=== PATIENT | male | born 1935 | race Caucasian/White ===

== ENCOUNTER 2020-06-30 07:09 | Inpatient (IN) | payer OTHER ==
[2020-06-30] VITALS (7 sets, daily range): BP systolic 101–135; BP diastolic 43–64
[~2020-06-30] VITALS: Ht 172.7 cm; Wt 79.4 kg
[2020-06-30 07:46] LABS: BASO % 0.2 % (0.0-1.0); EOS % 0.9 % (1.0-4.0); HEMATOCRIT 33.7 % (42.0-52.0); LYMPH # 0.5 10*3/uL (1.3-4.4); LYMPH % 10.5 % (27.0-41.0); MEAN CELL VOLUME 91.8 fl (80.0-94.0); MEAN CORPUSCULAR HGB 30.5 pg (27.0-31.0); MEAN CORPUSCULAR HGB CONC 33.2 g/dl (33.0-37.0); MEAN PLATELET VOLUME 9.8 fl (9.6-12.3); MONO # 0.7 10*3/uL (0.1-1.0); MONO % 15.4 % (3.0-9.0); NEUT # 3.2 10*3/uL (2.3-7.9); NEUT % 71.9 % (47.0-73.0); PLATELET COUNT AUTOMATED 115 10*3/uL (130-400); RED BLOOD COUNT 3.67 10*6/uL (4.50-5.90); RED CELL DISTRI WIDTH 14.6 % (0-14.5); WHITE BLOOD COUNT 4.5 10*3/uL (4.8-10.8)
[2020-06-30 08:01] LABS: ALBUMIN 3.4 gm/dl (3.1-4.5); CREATININE 1.85 mg/dL (0.70-1.30); TOTAL PROTEIN 7.3 gm/dL (6.4-8.2)
[2020-06-30 08:02] LABS: BILIRUBIN Negative (Negative); BLOOD Negative (Negative); CLARITY Clear (Clear); COLOR Yellow (Yellow); GLUCOSE Negative (Negative); KETONE Trace (Negative); LEUKO ESTERASE Negative (Negative); NITRITE Negative (Negative); SPECIFIC GRAVITY 1.025 (1.001-1.030); UROBILINOGEN 0.2 E.U./dl (0.0-1.0)
[2020-06-30 08:12] LABS: MUCOUS TRACE; RBC 0-2 rbc/hpf (0-2)
--- NOTE | 2020-06-30 09:05 | NUR ---
DAUGHTER IN ROOM TALKING WITH PATIENT PER DR HUTSON REQUEST.
--- NOTE | 2020-06-30 09:30 | NUR ---
PT DENIES HEADACHE, TEMP 99.9 TYLENOL EFFECTIVE.
--- NOTE | 2020-06-30 09:35 | NUR ---
DELAY IN TAKING PT TO THE FLOOR, ROOM JUST CLEANED AND BED NEEDS TO DRY.
--- NOTE | 2020-06-30 10:04 | NUR ---
[facility] 84, admitted to , under the services of MCKENZIE Roberts DO with a diagnosis of PUI. Chief complaint is DENIES C/O. Patient arrived via bed from ER. Monitor applied. Initial assessment completed. Vital signs taken and recorded. MCKENZIE ROBERTS DO notified of admission to the unit. Orders received. See assessment for past medical history, medications and allergies. Patient and/or family oriented to unit. [facility]. Clothing/patient valuable form completed. CHELSEA SANCHEZ
[2020-07-01] VITALS: BP 114/56
[2020-07-01 06:00] LABS: BASO % 0.2 % (0.0-1.0); EOS % 0.4 % (1.0-4.0); LYMPH % 21.9 % (27.0-41.0); MEAN CELL VOLUME 91.4 fl (80.0-94.0); MEAN CORPUSCULAR HGB 30.2 pg (27.0-31.0); MEAN PLATELET VOLUME 9.9 fl (9.6-12.3); MONO # 0.6 10*3/uL (0.1-1.0); NEUT # 2.9 10*3/uL (2.3-7.9); NEUT % 63.4 % (47.0-73.0); PLATELET COUNT AUTOMATED 112 10*3/uL (130-400); RED BLOOD COUNT 3.61 10*6/uL (4.50-5.90); RED CELL DISTRI WIDTH 14.5 % (0-14.5); WHITE BLOOD COUNT 4.6 10*3/uL (4.8-10.8)
[2020-07-01 06:45] LABS: CREATININE 1.66 mg/dL (0.70-1.30); POTASSIUM 4.2 mmol/L (3.5-5.1)
[2020-07-01 06:51] LABS: THYROID STIM HORMONE (HS) 2.57 uIU/ml (0.358-4.75)
[2020-07-01 07:17] LABS: VITAMIN D, 25-HYDROXY 38.4 ng/mL (30-100)
[2020-07-01 08:00] VITALS: BP 101/56
--- NOTE | 2020-07-01 08:45 | NUR ---
PT AWAKE, ALERT, ORIENTED. ROOM AIR POX 95%. NO DIFFICULTY BREATHING AT THIS TIME. LUNGS ARE DIMINISHED T/O. ABD IS SOFT & NONTENDER. DENIES ANY PAIN OR DISCOMFORT. CALL LIGHT IS WITHIN REACH.
--- NOTE | 2020-07-01 09:18 | NUR ---
H[employer] Door Frame Assembler in to talk to patient. Patient states lives at [facility] with others. There are 0 steps in the home. Physician: Daughter is unsure of PCP name but states it's in [place] Pharmacy: [facility] preferred pharmacy, daughter is unsure Home health services: [facility] Patient's level of ADLs: INDEPENDENT Patient has working utilities: yes DME: Cane Follow-up physician's appointment after d/c: [facility] Does patient want to access PORTAL?: no Discharge plan : Patient is currently in Covid precautions. I called and spoke with patients daughter Kaylee Morales who is a physician in [place]. She stated this patient lived in an assisted living apartment in [facility] for 10 years and was recently evicted for unknown reasons, she assumes because of patients DX of paranoid schizophrenia. At this time he does have his Medicaid Waiver for assisted living but she is unable to find one that will accept him. She has moved him into the [facility] in [facility] and if patient stays there he will lose his medicaid waiver. She stated he is independent and uses a cane to walk. He does not require any other DME or oxygen and the [facility] takes care of all his other needs at this time. She is unsure whether or not they will transport patient home. . SHAYLA PALOMARES
[2020-07-01 12:00] VITALS: BP 111/59
--- NOTE | 2020-07-01 15:33 | NUR ---
PT C/O HEADACHE AT THIS TIME AND MEDICATED WITH PO TYLENOL PER ORDER. WILL MONITOR FOR EFFECTIVENESS.
[2020-07-01 16:00] VITALS: BP 155/51
--- NOTE | 2020-07-01 16:33 | NUR ---
PER PATIENT, TYLNEOL HAS BEEN EFFECTIVE.
[2020-07-01 20:00] VITALS: BP 154/60
--- NOTE | 2020-07-01 21:37 | NUR ---
TYLENOL GIVEN FOR NOTED SKIN WARMTH, DIAPHORETIC AND TEMP OF 99.0. WILL MONITOR. RESTORIL ALSO GIVEN AT THIS TIME TO HELP HIM SLEEP PER HIS REQUEST. WILL MONITOR.
[2020-07-02] VITALS: BP 114/58
--- NOTE | 2020-07-02 02:16 | NUR ---
24HR CHART CHECK COMPLETED
[2020-07-02 06:58] LABS: BASO % 0.2 % (0.0-1.0); EOS % 0.2 % (1.0-4.0); HEMATOCRIT 35.9 % (42.0-52.0); LYMPH % 15.6 % (27.0-41.0); MEAN CELL VOLUME 92.5 fl (80.0-94.0); MEAN CORPUSCULAR HGB 30.2 pg (27.0-31.0); MEAN CORPUSCULAR HGB CONC 32.6 g/dl (33.0-37.0); MEAN PLATELET VOLUME 10.1 fl (9.6-12.3); MONO # 0.4 10*3/uL (0.1-1.0); MONO % 6.1 % (3.0-9.0); NEUT # 4.9 10*3/uL (2.3-7.9); NEUT % 77.6 % (47.0-73.0); PLATELET COUNT AUTOMATED 103 10*3/uL (130-400); RED BLOOD COUNT 3.88 10*6/uL (4.50-5.90); RED CELL DISTRI WIDTH 14.6 % (0-14.5); WHITE BLOOD COUNT 6.4 10*3/uL (4.8-10.8)
[2020-07-02 07:13] LABS: CREATININE 1.61 mg/dL (0.70-1.30); POTASSIUM 4.4 mmol/L (3.5-5.1)
[2020-07-02 08:00] VITALS: BP 130/98
--- NOTE | 2020-07-02 10:40 | NUR ---
PT AWAKE/ALERT/ORIENTED. LUNGS CLR/DIM. DENIES ANY NEEDS AT THIS TIME. ROOM AIR. SLIGHT MOIST COUGH NOTED ON ASSESSMENT. ABD SOFT & NONTENDER. CALL LIGHT IN REACH AT ALL TIMES.
[2020-07-02 12:00] VITALS: BP 144/71
[2020-07-02 16:00] VITALS: BP 137/68
[2020-07-02 20:00] VITALS: BP 138/55
--- NOTE | 2020-07-02 23:00 | NUR ---
PATIENT VOICED NO COMPLAINTS. AROUSE EASILY, SLEEPING, EYES CLOSED. NO DISTRESS NOTED, RESP ARE EASY AND REGULAR. BED IS LOCKED IN LOWEST POSITION. CALL LIGHT WITHIN REACH
[2020-07-03] VITALS: BP 115/43
--- NOTE | 2020-07-03 01:25 | NUR ---
PATIENT MEDICATIONS WITH RESTORIL FOR C/O INSOMNIA. WILL MONITOR
[2020-07-03 06:46] LABS: BASO % 0.1 % (0.0-1.0); HEMATOCRIT 30.3 % (42.0-52.0); LYMPH # 1.1 10*3/uL (1.3-4.4); LYMPH % 12.7 % (27.0-41.0); MEAN CELL VOLUME 89.9 fl (80.0-94.0); MEAN CORPUSCULAR HGB 30.3 pg (27.0-31.0); MEAN CORPUSCULAR HGB CONC 33.7 g/dl (33.0-37.0); MONO # 0.7 10*3/uL (0.1-1.0); MONO % 7.6 % (3.0-9.0); NEUT # 6.9 10*3/uL (2.3-7.9); NEUT % 78.9 % (47.0-73.0); PLATELET COUNT AUTOMATED 107 10*3/uL (130-400); RED BLOOD COUNT 3.37 10*6/uL (4.50-5.90); RED CELL DISTRI WIDTH 14.4 % (0-14.5); WHITE BLOOD COUNT 8.7 10*3/uL (4.8-10.8)
[2020-07-03 07:16] LABS: CREATININE 1.65 mg/dL (0.70-1.30); POTASSIUM 3.7 mmol/L (3.5-5.1)
[2020-07-03 08:00] VITALS: BP 118/57
--- NOTE | 2020-07-03 08:05 | NUR ---
Patient comes in from the [facility] in [place], phone number to facility is [phone].
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
--- NOTE | 2020-07-03 09:15 | NUR ---
PHYSICAL THERAPY Physical Therapy evaluation completed on 4th floor with full evaluation to follow. Recommend physical therapy per plan of care and SNF upon discharge. Thank you for this referral. Talha Armando SPT Maria G Veliz DPT,PT
--- NOTE | 2020-07-03 11:04 | NUR ---
Occupational Therapy evaluation completed on 4E with full evaluation to follow. Recommend occupational therapy per plan of care and SNF upon discharge. Thank you for this referral. Damaris Vega OTR/L
[2020-07-03 11:49] VITALS: BP 137/75
--- NOTE | 2020-07-03 12:12 | NUR ---
Patients daughter called and we discussed patient going to snf for a while. She stated she does not want patient going to nursing home for rehab due to covid concerns and she stated that prior to him becoming feverish he was walking a mile outside daily. He is weak from his fever and will consider using a front wheeled walker for a couple of weeks but she definately wants him returning to [facility]. She also asked when he is discharged to call her and she will arrange for transportation. She asked for a call back from patients physician, notified Dr. Farfan.
--- NOTE | 2020-07-03 12:47 | NUR ---
Received wheeled walker prescription. Faxed referral to [facility].
--- NOTE | 2020-07-03 13:20 | NUR ---
OT NOTE Pt was seen this P.M. 1:1 for 18 minute OT session. Upon arrival pt was supine in bed. Pt identified by name and and had no complaints at this time. Pt transferred supine to sit EOB with SBA. While sitting EOB pt donned B socks with CGA for safety. Sit to stand completed from bed level with CGA and use of w/w for UE support. Functional mobility completed into the bathroom with CGA and use of w/w with verbal prompts to slow down due to being impulsive increasing risk of falls. Pt presented with fair carry over. There he transferred on/off standard commode with CGA and use of grab bar for UE support. He then stood sink side while washing his hands with CGA for safety. Functional mobility completed back to the EOB. After a seated rest break challenged pt's dynamic standing balance while weight shifting, crossing midline, and reaching over all planes. Pt was able to maintain F+/G- standing balance throughout. He then transferred back into bed sit to supine with SBA. There he was left with call light in hand, tray table in place, and bed alarm activated for safety. Continue with rec D/C plan to SNF. MANDY Adamson/Valorie
--- NOTE | 2020-07-03 14:42 | NUR ---
PHYSICAL THERAPY TREATMENT TIME: 12:55 PM 18 MINUTES TOTAL Patient presented to therapy in supine in bed with head of bed flat and bed alarm on. Patient gives informed consent for treatment. Patient was identified by name and on wristband. Patient performed supine<>sit EOB with SBA. Patient sat on EOB SBA. Patient completed STS from EOB with SBA- CGA. Patient ambulated with Wh Walker and CGA for 50' X 2 with no LOB and no SOB. Patient STS <> COMMODE CGA. Patient sat on EOB and performed THER EX in all planes of movement 2 x1 reps each for strengthening the LEs in order to improve patient's functional mobility. Patient transferred back to supine in bed with SBA. Patient was left in supine in bed with head of bed elevated and call light within reach. Patient's bed alarm was on. Patient performed 30 seconds STS TEST with 12 STSs in 30 seconds total from EOB. Patient was 1:1 with this CHIEF ENTERPRISE ARCHITECT 18 minutes total. CHRISTIE LAND CHIEF ENTERPRISE ARCHITECT
[2020-07-03 16:00] VITALS: BP 139/63
--- NOTE | 2020-07-03 18:50 | NUR ---
Discharge instructions reviewed with patient/family. Patient receptive and verbalizes understanding. Follow-up care arranged. Written instructions given to patient/family. ALL AL
--- NOTE | 2020-07-04 07:19 | NUR ---
PHYSICAL THERAPY CO-SIGN I approve of the Physical Therapy notes written above. Donita Parker PT
--- NOTE | 2020-07-04 07:42 | NUR ---
OCCUPATIONAL THERAPY CO-SIGN I approve of the Occupational Therapy notes written above. JUAN GARRIDO, OTR/L
== END 2020-07-03 18:50 | disposition home or self-care (01) | DRG 682 ==
LOC: ED 07:09 → EDHOLD 09:05 → 4E 09:05
PROVIDERS: Internal Medicine; Student in an Organized Health Care Education/Training Program; ADMIT Internal Medicine; ATTEND Internal Medicine
DX: N17.0 Acute kidney failure with tubular necrosis (principal); R65.11 Systemic inflammatory response syndrome (SIRS) of non-infectious origin with acute organ dysfunction; Z20.828 Contact with and (suspected) exposure to other viral communicable diseases; F20.9 Schizophrenia, unspecified; D64.9 Anemia, unspecified; D69.6 Thrombocytopenia, unspecified; R73.9 Hyperglycemia, unspecified